=== PATIENT | female | born 1990 | race Caucasian/White ===

== ENCOUNTER → 2017-02-09 | Day surgery (SDC) | payer OTHER ==
[~2017-02-09] MED LIST: ALLEGRA ALLERGY60 MG PO; MIRALAX17 GM PO; NEURONTIN 300300 MG PO; NORCO 10-325 T1 EACH PO; ZYRTEC10 M3 PO
[2017-02-09 06:41] LABS: HEMOGLOBIN 13.7 gm/dl (12.3-15.3); RED BLOOD COUNT 4.2 M/UL (4.00-5.10); WHITE BLOOD COUNT 7.7 K/UL (4.5-11.0)
== END | disposition home or self-care (01) ==
LOC: OR 05:32
PROVIDERS: Obstetrics & Gynecology
PROC: 0WJJ4ZZ Inspection of Pelvic Cavity, Percutaneous Endoscopic Approach (ICD-10-PCS; principal; 2017-02-09 08:00)
DX: R10.2 Pelvic and perineal pain (principal); K59.09 Other constipation; N92.6 Irregular menstruation, unspecified; G43.909 Migraine, unspecified, not intractable, without status migrainosus; F17.210 Nicotine dependence, cigarettes, uncomplicated; Z79.899 Other long term (current) drug therapy
CPT/HCPCS: 36415; 81001; 84703; 85025; J1100; J1885; J2250; J2405; J2710; J2795; J3010; J7120

== ENCOUNTER 2022-05-03 16:56 | Outpatient (CLI) | payer OTHER ==
[~2022-05-03 16:56] MED LIST changes: +PENVEE K 500 M500 MG PO; +TYLENOL 500 MG500 MG PO
[2022-05-04] MEDS ORDERED: IBUPROFEN600 MG PO (16:32)
[2022-05-04] MEDS ORDERED: DOCUSATE SODIU100 MG PO (16:32)
== END 2022-05-03 22:58 | disposition home or self-care (01) ==
LOC: GENOP 16:56 → OB 17:21 → GENOP 22:58
DX: O14.93 Unspecified pre-eclampsia, third trimester (principal); Z3A.37 37 weeks gestation of pregnancy
CPT/HCPCS: 59025

== ENCOUNTER 2022-05-04 06:17 | Inpatient (IN) | payer OTHER ==
[~2022-05-04] VITALS: Ht 167.6 cm; Wt 75.7 kg
[2022-05-04 07:47] LABS: HEMOGLOBIN 10.2 gm/dl (12.3-15.3); RED BLOOD COUNT 3.91 M/UL (4.00-5.10); WHITE BLOOD COUNT 9.7 K/UL (4.5-11.0)
[2022-05-04] MEDS ORDERED: IBUPROFEN600 MG PO (16:32)
[2022-05-04] MEDS ORDERED: DOCUSATE SODIU100 MG PO (16:32)
== END 2022-05-06 16:11 | disposition home or self-care (01) | DRG 806 ==
LOC: OB 06:17
PROVIDERS: Obstetrics & Gynecology; ADMIT Obstetrics & Gynecology
PROC: 10H07YZ Insertion of Other Device into Products of Conception, Via Natural or Artificial Opening (ICD-10-PCS; principal; 2022-05-04)
PROC: 10E0XZZ Delivery of Products of Conception, External Approach (ICD-10-PCS; 2022-05-04)
PROC: 10907ZC Drainage of Amniotic Fluid, Therapeutic from Products of Conception, Via Natural or Artificial Opening (ICD-10-PCS; 2022-05-04)
PROC: 3E033VJ Introduction of Other Hormone into Peripheral Vein, Percutaneous Approach (ICD-10-PCS; 2022-05-04)
PROC: 3E0234Z Introduction of Serum, Toxoid and Vaccine into Muscle, Percutaneous Approach (ICD-10-PCS; 2022-05-04)
DX: O13.4 Gestational [pregnancy-induced] hypertension without significant proteinuria, complicating childbirth (principal); F11.20 Opioid dependence, uncomplicated; Z37.0 Single live birth; O99.892 Other specified diseases and conditions complicating childbirth; O99.02 Anemia complicating childbirth; O99.324 Drug use complicating childbirth; D64.9 Anemia, unspecified; G43.909 Migraine, unspecified, not intractable, without status migrainosus; Z98.890 Other specified postprocedural states; Z3A.37 37 weeks gestation of pregnancy; Z28.310 Unvaccinated for COVID-19; Z83.3 Family history of diabetes mellitus; Z82.49 Family history of ischemic heart disease and other diseases of the circulatory system; Z81.8 Family history of other mental and behavioral disorders; Z82.0 Family history of epilepsy and other diseases of the nervous system; Z23 Encounter for immunization; Z87.11 Personal history of peptic ulcer disease
CPT/HCPCS: 36415; 80307; 81001; 82800; 85014; 85018; 85025; 90715; J2590